=== PATIENT | male | born 1945 | race Native Hawaiian/Other Pacific Islander ===

== ENCOUNTER 2017-12-04 15:35 | Outpatient (CLI) | payer OTHER | END 2017-12-04 23:57 | disposition home or self-care (01) | LOC: RAD 15:35 | DX: G89.29 Other chronic pain (principal); R07.81 Pleurodynia ==

== ENCOUNTER 2018-02-04 08:42 | Outpatient (CLI) | payer OTHER | END 2018-02-04 19:54 | disposition home or self-care (01) | LOC: US 08:42 | DX: Z00.00 Encounter for general adult medical examination without abnormal findings (principal); F17.200 Nicotine dependence, unspecified, uncomplicated; Z13.6 Encounter for screening for cardiovascular disorders ==